=== PATIENT | male | born 1995 | race Caucasian/White ===

== ENCOUNTER 2020-10-15 06:46 | Outpatient (NON) | payer OTHER, SELFPAY ==
[2020-10-15 23:37] LABS: SARS-CoV-2 RNA PCR Negative
== END 2020-10-15 06:47 ==
PROVIDERS: PCP Family Medicine; Visit Provider Family Medicine
DX: R68.89 Other general symptoms and signs (principal); Z20.828 Contact with and (suspected) exposure to other viral communicable diseases
CPT/HCPCS: 87635; C9803; U0003